=== PATIENT | female | born 1935 | race Two or more races ===

== ENCOUNTER 2022-08-27 22:51 | Emergency (ER) | payer OTHER ==
[~2022-08-27] VITALS: Ht 147.3 cm; Wt 59.0 kg
[2022-08-27] MEDS ORDERED: TOPROL XL50 M1 (23:18)
[2022-08-27] MEDS ORDERED: HORIZANT300 MG (23:18)
[2022-08-28] MEDS ORDERED: ANTIFUNGAL113 GM TOP (04:12)
[2022-08-28] MEDS ORDERED: NORFLEX100MG PO (04:12)
[2022-08-28] MEDS ORDERED: DICLOFENAC POTA50 MG PO (04:12)
[2022-08-28] MEDS ORDERED: ATARAX25 MG PO (04:12)
== END 2022-08-28 04:17 | disposition home or self-care (01) ==
LOC: ER 22:51
DX: R21 Rash and other nonspecific skin eruption (principal); S49.82XA Other specified injuries of left shoulder and upper arm, initial encounter; X58.XXXA Exposure to other specified factors, initial encounter; Y93.89 Activity, other specified; Y92.018 Other place in single-family (private) house as the place of occurrence of the external cause